=== PATIENT | male | born 1955 | race African-American/Black ===

== ENCOUNTER 2018-03-24 08:46 | Inpatient (IN) | payer SELFPAY ==
[~2018-03-24] VITALS: Ht 172.7 cm; Wt 74.9 kg
[~2018-03-24 08:46] MED LIST: PIPERACILLIN/TAZ 2.25G PREMIX 50 ML IV SCH
[2018-03-24] MEDS ORDERED: SODIUM CHLORIDE 0.9% 1,000 ML IV ONE (09:05)
[2018-03-24 10:02] LABS: BASOPHILS % 0.3 % (0.0-2.0); EOSINOPHILS % 0.3 % (0.0-5.0); HEMOGLOBIN. 11.2 g/dL (14.0-18.0); MEAN CORPUSCULAR HEMOGLOBIN 28.1 pg (28.0-32.0); MEAN CORPUSCULAR VOLUME 87.9 fL (80.0-94.0); MEAN PLATELET VOLUME 7.8 fl (7.4-10.4); MONOCYTES % 3.4 % (2.0-8.0); PLATELET 336 x1000/uL (130-400); RED BLOOD CELL COUNT 3.98 mill/uL (4.7-6.1); RED CELL DISTRIBUTION WIDTH 14.4 % (11.6-14.6)
[2018-03-24 10:10] LABS: CHLORIDE 103 mEq/L (98-107)
[2018-03-24 10:17] LABS: ETHANOL BLOOD < 10 mg/dL
[2018-03-24] MEDS ORDERED: HYDRALAZINE 20MG/ML VIAL IV ONE (10:45)
[2018-03-24] MEDS ORDERED: KETOROLAC 15MG/ML VIAL IV ONE (10:45)
[2018-03-24 12:53] LABS: *AMPHETAMINES SCREEN URINE NEGATIVE (NEGATIVE); *BARBITURATES SCREEN URINE NEGATIVE (NEGATIVE); *BENZODIAZEPINES SCREEN URINE NEGATIVE (NEGATIVE); *COCAINE SCREEN URINE NEGATIVE (NEGATIVE); CANNABINOID URINE SCREEN NEGATIVE (NEGATIVE); METHADONE URINE SCREEN NEGATIVE (NEGATIVE); OPIATES URINE SCREEN NEGATIVE (NEGATIVE); PHENCYCLIDINE URINE SCREEN NEGATIVE (NEGATIVE)
[2018-03-24 16:18] VITALS: BP 150/91
[2018-03-24] MEDS ORDERED: DOCUSATE SODIUM 100MG CAPSULE PO PRN (16:45)
[2018-03-24] MEDS ORDERED: ACETAMINOPHEN 650MG SUPP PR PRN (16:45)
[2018-03-24] MEDS ORDERED: ACETAMINOPHEN 650MG/20.3ML UDC GT PRN (16:45)
[2018-03-24] MEDS ORDERED: NA PHOS,M-B/NA PHOS,DI-BA ENEMA 118ML PR PRN (16:45)
[2018-03-24] MEDS ORDERED: ONDANSETRON HCL 4MG/2ML INJ IV PRN (16:45)
[2018-03-24] MEDS ORDERED: IPRATROPIUM/ALBUTEROL 0.5-3(2.5)MG/3ML NEB INH PRN (16:45)
[2018-03-24] MEDS ORDERED: GUAIFENESIN 200MG/10ML SUGAR FREE UDC PO PRN (16:45)
[2018-03-24] MEDS ORDERED: DIPHENHYDRAMINE 50MG/ML VIAL IV PRN (16:45)
[2018-03-24] MEDS ORDERED: MAGNESIUM/ALUMINUM HYDROXIDE/SIMETHICONE 30ML UDC PO PRN (16:45)
[2018-03-24] MEDS: SODIUM CHLORIDE 0.45% 1,000 ML IV SCH (18:27)
[2018-03-24 20:00] VITALS: BP 113/69
[2018-03-24] MEDS: SODIUM CHLORIDE 0.9% INJ 3ML FLUSH IVF SCH (21:23)
[2018-03-24 23:03] LABS: CREATINE KINASE 131 IU/L (39-308)
[2018-03-24 23:04] LABS: CREATINE KINASE MB FRACTION 1.7 ng/mL (0.5-3.6)
[2018-03-24 23:45] LABS: CLARITY URINE CLEAR (CLEAR); COLOR URINE YELLOW (YELLOW); KETONES URINE NEGATIVE (NEGATIVE); LEUKOCYTE ESTERASE URINE NEGATIVE (NEGATIVE); NITRITE URINE NEGATIVE (NEGATIVE); OCCULT BLOOD URINE NEGATIVE (NEGATIVE); PH URINE 7.5 (4.5-8.0); PROTEIN URINE TRACE (NEGATIVE); SPECIFIC GRAVITY URINE 1.016 (1.005-1.030); UROBILINOGEN URINE 0.2 E.U./dL (0.2-1.0)
[2018-03-25] VITALS: BP 131/75
[2018-03-25] MEDS: PIPERACILLIN/TAZ 2.25G PREMIX 50 ML IV SCH ×3 (01:14→13:30)
[2018-03-25 04:00] VITALS: BP 137/77
[2018-03-25] MEDS: SODIUM CHLORIDE 0.45% 1,000 ML IV SCH (06:20)
[2018-03-25] MEDS: SODIUM CHLORIDE 0.9% INJ 3ML FLUSH IVF SCH ×3 (06:21→22:37)
[2018-03-25] MEDS: ACETAMINOPHEN 325MG TABLET PO PRN ×3 (06:21→19:46)
[2018-03-25 07:09] LABS: BASOPHILS % 0.4 % (0.0-2.0); EOSINOPHILS % 0.1 % (0.0-5.0); HEMATOCRIT. 36.6 % (42.0-52.0); HEMOGLOBIN. 11.8 g/dL (14.0-18.0); LYMPHOCYTES % 14.6 % (20.0-50.0); MEAN PLATELET VOLUME 8.3 fl (7.4-10.4); MONOCYTES % 7.5 % (2.0-8.0); NEUTROPHILS % 77.4 % (40.0-76.0); PLATELET 319 x1000/uL (130-400); RED CELL DISTRIBUTION WIDTH 14.3 % (11.6-14.6)
[2018-03-25 08:00] VITALS: BP 134/98
[2018-03-25 08:14] LABS: CHLORIDE 100 mEq/L (98-107)
[2018-03-25 08:31] LABS: CREATINE KINASE 245 IU/L (39-308); CREATINE KINASE MB FRACTION 4.5 ng/mL (0.5-3.6); HDL CHOLESTEROL 58 mg/dL (40-59); LDL CHOLESTEROL 84 mg/dL (5-100)
[2018-03-25 12:00] VITALS: BP 144/91
[2018-03-25 18:00] VITALS: BP 178/95
[2018-03-25] MEDS ORDERED: VANCOMYCIN 1,750 MG in DEXT 5% WATER 500 ML IV NR (18:00)
[2018-03-25] MEDS: CEFTRIAXONE 2 G in DEXT 5% WATER 100 ML IV SCH (18:52)
[2018-03-25] MEDS: ACYCLOVIR IV SCH (19:33)
[2018-03-25] MEDS: DEXT 5% IV SCH (19:33)
[2018-03-25] MEDS: WATER IV SCH (19:33)
[2018-03-25 20:00] VITALS: BP 167/94
[2018-03-25] MEDS: CLONIDINE 0.1MG TABLET PO PRN (21:23)
[2018-03-25] MEDS: AMPICILLIN 2,000 MG in SODIUM CHLORIDE 0.9% 100 ML IV SCH (21:28)
[2018-03-25] MEDS: OSELTAMIVIR 75MG CAPSULE PO SCH (22:37)
[2018-03-26] VITALS: BP 112/74
[2018-03-26] MEDS: AMPICILLIN 2,000 MG in SODIUM CHLORIDE 0.9% 100 ML IV SCH ×4 (00:52→18:13)
[2018-03-26] MEDS: DEXT 5% IV SCH ×3 (03:01→17:40)
[2018-03-26] MEDS: ACYCLOVIR IV SCH ×3 (03:01→17:40)
[2018-03-26] MEDS: WATER IV SCH ×3 (03:01→17:40)
[2018-03-26 04:00] VITALS: BP 143/90
[2018-03-26] MEDS: CEFTRIAXONE 2 G in DEXT 5% WATER 100 ML IV SCH ×2 (04:50→16:50)
[2018-03-26] MEDS: VANCOMYCIN 1250MG in DEXTROSE 5% WATER 250ML IV SCH ×2 (06:52→19:46)
[2018-03-26] MEDS: SODIUM CHLORIDE 0.9% INJ 3ML FLUSH IVF SCH ×2 (06:52→13:04)
[2018-03-26 08:00] VITALS: BP 128/84
[2018-03-26] MEDS: OSELTAMIVIR 75MG CAPSULE PO SCH ×2 (08:48→21:53)
[2018-03-26 12:00] VITALS: BP 117/97
[2018-03-26 16:00] VITALS: BP 121/74
[2018-03-26 16:14] LABS: BASOPHILS % 0.8 % (0.0-2.0); EOSINOPHILS % 1.7 % (0.0-5.0); HEMATOCRIT. 33.8 % (42.0-52.0); LYMPHOCYTES % 25.6 % (20.0-50.0); MEAN CORPUSCULAR HEMOGLOBIN 28.2 pg (28.0-32.0); MEAN CORPUSCULAR VOLUME 86.9 fL (80.0-94.0); MEAN PLATELET VOLUME 8.2 fl (7.4-10.4); MONOCYTES % 9.3 % (2.0-8.0); NEUTROPHILS % 62.6 % (40.0-76.0); PLATELET 304 x1000/uL (130-400); RED BLOOD CELL COUNT 3.89 mill/uL (4.7-6.1); RED CELL DISTRIBUTION WIDTH 14.1 % (11.6-14.6)
[2018-03-26 16:59] LABS: CHLORIDE 101 mEq/L (98-107)
[2018-03-26 20:00] VITALS: BP 132/86
[2018-03-26] MEDS: SODIUM CHLORIDE 0.45% 1,000 ML IV SCH (21:48)
[2018-03-26] MEDS: ACETAMINOPHEN 325MG TABLET PO PRN (21:51)
[2018-03-27] VITALS: BP 143/90
[2018-03-27] MEDS: SODIUM CHLORIDE 0.9% INJ 3ML FLUSH IVF SCH ×4 (00:07→20:43)
[2018-03-27] MEDS: AMPICILLIN 2,000 MG in SODIUM CHLORIDE 0.9% 100 ML IV SCH ×3 (00:07→12:27)
[2018-03-27] MEDS: DEXT 5% IV SCH ×2 (01:25→09:04)
[2018-03-27] MEDS: WATER IV SCH ×2 (01:25→09:04)
[2018-03-27] MEDS: ACYCLOVIR IV SCH ×2 (01:25→09:04)
[2018-03-27 04:00] VITALS: BP 136/80
[2018-03-27] MEDS: CEFTRIAXONE 2 G in DEXT 5% WATER 100 ML IV SCH ×2 (05:36→17:20)
[2018-03-27 06:49] LABS: EOSINOPHILS % 2.3 % (0.0-5.0); HEMATOCRIT. 33.3 % (42.0-52.0); HEMOGLOBIN. 10.9 g/dL (14.0-18.0); LYMPHOCYTES % 28.9 % (20.0-50.0); MEAN CORPUSCULAR HEMOGLOBIN 28.5 pg (28.0-32.0); MEAN CORPUSCULAR VOLUME 87.4 fL (80.0-94.0); MEAN PLATELET VOLUME 8.5 fl (7.4-10.4); MONOCYTES % 9.2 % (2.0-8.0); NEUTROPHILS % 58.6 % (40.0-76.0); PLATELET 299 x1000/uL (130-400); RED BLOOD CELL COUNT 3.81 mill/uL (4.7-6.1); RED CELL DISTRIBUTION WIDTH 14.3 % (11.6-14.6)
[2018-03-27 07:12] LABS: CHLORIDE 104 mEq/L (98-107)
[2018-03-27] MEDS: VANCOMYCIN 1250MG in DEXTROSE 5% WATER 250ML IV SCH (07:12)
[2018-03-27 07:29] LABS: VANCOMYCIN TROUGH 17.7 ug/mL (5.0-10.0)
[2018-03-27 08:00] VITALS: BP 153/105
[2018-03-27] MEDS: OSELTAMIVIR 75MG CAPSULE PO SCH ×2 (09:04→20:41)
[2018-03-27] MEDS: CLONIDINE 0.1MG TABLET PO PRN (09:05)
[2018-03-27 09:11] LABS: HIV SCREEN 4G Non Reactive (Non Reactive)
[2018-03-27 12:00] VITALS: BP 100/65
[2018-03-27] MEDS: ACETAMINOPHEN 325MG TABLET PO PRN (13:57)
[2018-03-27 16:00] VITALS: BP 129/70
[2018-03-27 20:00] VITALS: BP 133/77
[2018-03-27] MEDS: VANCOMYCIN 1500MG in DEXTROSE 5% WATER 250ML IV SCH (20:43)
[2018-03-28] VITALS: BP 138/91
[2018-03-28 04:00] VITALS: BP 137/84
[2018-03-28] MEDS: SODIUM CHLORIDE 0.9% INJ 3ML FLUSH IVF SCH ×3 (06:10→19:59)
[2018-03-28] MEDS: CEFTRIAXONE 2 G in DEXT 5% WATER 100 ML IV SCH ×2 (06:18→17:18)
[2018-03-28 08:00] VITALS: BP 147/87
[2018-03-28] MEDS: VANCOMYCIN 1500MG in DEXTROSE 5% WATER 250ML IV SCH ×2 (09:11→19:58)
[2018-03-28] MEDS: OSELTAMIVIR 75MG CAPSULE PO SCH ×2 (09:12→19:59)
[2018-03-28 12:00] VITALS: BP 159/99
[2018-03-28 16:00] VITALS: BP 175/102
[2018-03-28] MEDS: CLONIDINE 0.1MG TABLET PO PRN (17:40)
[2018-03-29] VITALS: BP_SYST 154; BP_SYST 156; BP_DIAS 79; BP_DIAS 89
[2018-03-29 04:00] VITALS: BP 145/98
[2018-03-29] MEDS: SODIUM CHLORIDE 0.9% INJ 3ML FLUSH IVF SCH ×3 (06:00→21:54)
[2018-03-29] MEDS: CEFTRIAXONE 2 G in DEXT 5% WATER 100 ML IV SCH ×2 (07:29→17:08)
[2018-03-29 08:00] VITALS: BP 153/84
[2018-03-29 08:43] LABS: BASOPHILS % 0.9 % (0.0-2.0); EOSINOPHILS % 3.6 % (0.0-5.0); HEMATOCRIT. 32.9 % (42.0-52.0); HEMOGLOBIN. 10.6 g/dL (14.0-18.0); LYMPHOCYTES % 21.6 % (20.0-50.0); MEAN CORPUSCULAR HEMOGLOBIN 28.2 pg (28.0-32.0); MEAN CORPUSCULAR VOLUME 87.1 fL (80.0-94.0); MEAN PLATELET VOLUME 8.5 fl (7.4-10.4); MONOCYTES % 11.2 % (2.0-8.0); NEUTROPHILS % 62.7 % (40.0-76.0); PLATELET 295 x1000/uL (130-400); RED BLOOD CELL COUNT 3.77 mill/uL (4.7-6.1)
[2018-03-29 09:15] LABS: CHLORIDE 104 mEq/L (98-107)
[2018-03-29] MEDS: AMLODIPINE 5MG TABLET PO SCH (09:50)
[2018-03-29] MEDS: OSELTAMIVIR 75MG CAPSULE PO SCH ×2 (09:51→21:54)
[2018-03-29 12:00] VITALS: BP 135/79
[2018-03-29] MEDS: VANCOMYCIN 1250MG in DEXTROSE 5% WATER 250ML IV SCH (12:46)
[2018-03-29 16:00] VITALS: BP 112/82
[2018-03-29 20:00] VITALS: BP 143/81
[2018-03-30] VITALS: BP 148/88
[2018-03-30] MEDS: VANCOMYCIN 1250MG in DEXTROSE 5% WATER 250ML IV SCH ×3 (00:49→23:38)
[2018-03-30 04:00] VITALS: BP 148/109
[2018-03-30] MEDS: SODIUM CHLORIDE 0.9% INJ 3ML FLUSH IVF SCH ×3 (05:26→22:19)
[2018-03-30] MEDS: CEFTRIAXONE 2 G in DEXT 5% WATER 100 ML IV SCH ×2 (05:26→17:51)
[2018-03-30 08:00] VITALS: BP 139/91
[2018-03-30] MEDS: AMLODIPINE 5MG TABLET PO SCH (09:44)
[2018-03-30] MEDS: OSELTAMIVIR 75MG CAPSULE PO SCH ×2 (09:45→20:21)
[2018-03-30 12:00] VITALS: BP 136/78
[2018-03-30] MEDS: ACETAMINOPHEN 325MG TABLET PO PRN (12:51)
[2018-03-30 16:00] VITALS: BP 143/83
[2018-03-30 20:00] VITALS: BP 127/79
[2018-03-31] VITALS: BP 139/89
[2018-03-31] MEDS: ACETAMINOPHEN 325MG TABLET PO PRN (01:13)
[2018-03-31 04:00] VITALS: BP 118/69
[2018-03-31] MEDS: CEFTRIAXONE 2 G in DEXT 5% WATER 100 ML IV SCH (05:17)
[2018-03-31] MEDS: SODIUM CHLORIDE 0.9% INJ 3ML FLUSH IVF SCH (05:26)
[2018-03-31 08:09] VITALS: BP 162/91
[2018-03-31] MEDS: AMLODIPINE 5MG TABLET PO SCH (08:55)
[2018-03-31] MEDS: OSELTAMIVIR 75MG CAPSULE PO SCH (08:55)
[2018-03-31 09:32] LABS: BASOPHILS % 1.2 % (0.0-2.0); EOSINOPHILS % 3.4 % (0.0-5.0); HEMATOCRIT. 33.3 % (42.0-52.0); HEMOGLOBIN. 10.7 g/dL (14.0-18.0); LYMPHOCYTES % 12.9 % (20.0-50.0); MEAN CORPUSCULAR HEMOGLOBIN 28.2 pg (28.0-32.0); MEAN CORPUSCULAR VOLUME 87.6 fL (80.0-94.0); MEAN PLATELET VOLUME 8.2 fl (7.4-10.4); MONOCYTES % 7.9 % (2.0-8.0); NEUTROPHILS % 74.6 % (40.0-76.0); PLATELET 314 x1000/uL (130-400); RED CELL DISTRIBUTION WIDTH 14.5 % (11.6-14.6)
[2018-03-31 09:40] LABS: CHLORIDE 104 mEq/L (98-107)
[2018-03-31] MEDS: VANCOMYCIN 1250MG in DEXTROSE 5% WATER 250ML IV SCH (11:24)
[2018-03-31 11:34] VITALS: BP 145/88
[2018-03-31 11:35] VITALS: BP 145/88
[2018-03-31 14:28] VITALS: BP 145/88
== END 2018-03-31 15:10 | disposition home or self-care (01) | DRG 50 ==
LOC: ER 08:46 → 5WST 10:56 → EDBEDREQ 10:59 → ENRESERV 15:00
PROVIDERS: ADMIT Family Medicine; ATTEND Family Medicine
PROC: 4A00X4Z Measurement of Central Nervous Electrical Activity, External Approach (ICD-10-PCS; principal; 2018-03-28)
DX: G03.9 Meningitis, unspecified (principal); G93.41 Metabolic encephalopathy; R73.9 Hyperglycemia, unspecified; Z53.29 Procedure and treatment not carried out because of patient's decision for other reasons; R00.0 Tachycardia, unspecified
CPT/HCPCS: 36415; 70551; 71045; 76770; 80048; 80061; 80202; 80305; 82550; 82553; 83605; 83880; 84484; 86592; 86635; 87070; 87389; 87430; 87804; 87899; 93005; 93306; 95816; 96361; 96374; 96375; 97116; 97162; 99291; C1893; G0482; J0133; J0290; J0360; J0696; J1885; J2543; J3370; J7030; J7040; J7050; J7060; A4315